=== PATIENT | female | born 2000 | race Hispanic/Latino ===

== ENCOUNTER 2022-07-03 19:56 | Emergency (ER) | payer OTHER, MEDICAID, SELFPAY ==
[2022-07-03 20:36] VITALS: BP 123/58; PULSE 88; RESP 18; TEMP 36.8; O2SAT 99; BMI 31.3
== END 2022-07-04 01:35 | disposition left against medical advice (07) ==
PROVIDERS: Emergency Provider Emergency Medicine
CPT/HCPCS: 99281